=== PATIENT | male | born 1945 | race Asian ===

== ENCOUNTER 2025-04-25 00:45 | Inpatient (IN) | payer MEDICARE, OTHER ==
[~2025-04-25] VITALS: Ht 165.1 cm; Wt 70.0 kg
[2025-04-25] MEDS ORDERED: SODIUM CHLORIDE 0.9% 100 ML ONE (01:01)
[2025-04-25] MEDS ORDERED: IOHEXOL 350 MG/ML 100 ML VIAL ONE (01:01)
[2025-04-25 01:11] LABS: PLATELET COUNT (AUTO) 281 K/uL (150-450); RED BLOOD CELL COUNT(AUTO) 4.05 MIL/uL (4.50-5.90); RED CELL DISTRIBUTION WIDTH 13.8 % (11.5-14.5); WHITE BLOOD COUNT (AUTO) 9.5 K/uL (4.5-11.0)
[2025-04-25] MEDS: METOCLOPRAMIDE HCL 5 MG/ML 2 ML VIAL IVP ONE (01:20)
[2025-04-25 01:29] LABS: CALCIUM, TOTAL 9.2 mg/dL (8.8-10.5); CREATININE 1.25 mg/dL (0.60-1.30); GLOMERULAR FILTR. RATE CALC 56.0 mL/min (>60); GLUCOSE,RANDOM 173.0 mg/dL (70-110); SODIUM SERUM 137.0 mmol/L (136-145); UREA NITROGEN, BLOOD 14.0 mg/dL (7-18)
[2025-04-25 01:36] LABS: ASPARTATE AMINOTRANSFERASE 21.0 U/L (15-37); CHOL/HDL RATIO 2.7 (4.2-7.3); LDL CHOL (CALC.) 41.0 mg/dL (0-130); TOTAL PROTEIN, SERUM 7.7 g/dL (6.4-8.2); TROPONIN I-HIGH SENSITIVITY 12 ng/L (<76)
[2025-04-25] MEDS: SODIUM CHLORIDE 0.9% 1,000 ML IV ONE (01:46)
[2025-04-25] MEDS: CLOPIDOGREL BISULFATE 300 MG TABLET PO ONE (04:48)
[2025-04-25] MEDS: ASPIRIN 325 MG TABLET PO ONE (04:48)
[2025-04-25 05:20] LABS: TROPONIN I-HIGH SENSITIVITY 16 ng/L (<76)
[2025-04-25 05:29] LABS: APPEARANCE,URINE CLEAR (CLEAR); GLUCOSE, URINE (UA) >=1000 mg/dL (NEGATIVE); LEUKOCYTE ESTERASE ,URINE NEGATIVE (NEGATIVE); NITRATE,URINE NEGATIVE (NEGATIVE); OCCULT BLOOD,URINE NEGATIVE (NEGATIVE); PH,URINE DRUG SCREEN 6.5 (5.0-8.0); SPECIFIC GRAVITIY, URINE 1.032 (1.003-1.030)
[2025-04-25 05:36] LABS: ALCOHOL, URINE DRUG SCREEN NEGATIVE (NEGATIVE); AMPHET/METH SCREEN,URINE NEGATIVE (NEGATIVE); BARBITURATE SCREEN, URINE NEGATIVE (NEGATIVE); CANNABINOID SCREEN,URINE NEGATIVE (NEGATIVE); COCAINE SCREEN,URINE NEGATIVE (NEGATIVE); METHADONE SCREEN, URINE NEGATIVE (NEGATIVE)
[2025-04-25 05:48] LABS: SQUAMOUS EPITHELIAL CELL,UR Few /LPF (None Seen)
[2025-04-25] MEDS: ONDANSETRON HCL 4 MG/2 ML VIAL IVP PRN (07:05)
[2025-04-25] MEDS: HEPARIN SODIUM,PORCINE 5,000 UNITS/ML VIAL SQ SCH (08:00)
[2025-04-25] MEDS: POTASSIUM CHL 10 MEQ/WATER 50 ML IV PRN (08:03)
[2025-04-25] MEDS: DOCUSATE SODIUM 100 MG CAPSULE PO SCH (08:04)
[2025-04-25] MEDS: CLOPIDOGREL BISULFATE 75 MG TABLET PO SCH (08:04)
[2025-04-25] MEDS: ASPIRIN 81 MG CHEWABLE TABLET PO SCH (08:05)
[2025-04-25 11:19] LABS: TROPONIN I-HIGH SENSITIVITY 18 ng/L (<76)
[2025-04-25 14:28] VITALS: BP 152/67; PULSE 62; RESP 18; TEMP 97.7; O2SAT 98
[2025-04-25 19:54] VITALS: BP 163/79; PULSE 70; RESP 19; TEMP 98.1; O2SAT 100
[2025-04-25] MEDS: ATORVASTATIN CALCIUM 40 MG TABLET PO SCH (21:00)
[2025-04-25] MEDS: ACETAMINOPHEN 650 MG/ISO-OSM 65 ML IV PRN (21:34)
[2025-04-25 23:56] VITALS: BP 155/85; PULSE 69; RESP 16; TEMP 98.4; O2SAT 100
[2025-04-26 05:13] VITALS: BP 165/75; PULSE 69; RESP 18; TEMP 98.4; O2SAT 95
[2025-04-26] MEDS ORDERED: SODIUM CHLORIDE 0.9% 250 ML IV ONE ×2 (05:57→20:25)
[2025-04-26 06:36] LABS: PLATELET COUNT (AUTO) 255 K/uL (150-450); RED BLOOD CELL COUNT(AUTO) 4.17 MIL/uL (4.50-5.90); RED CELL DISTRIBUTION WIDTH 13.8 % (11.5-14.5); WHITE BLOOD COUNT (AUTO) 8.7 K/uL (4.5-11.0)
[2025-04-26 06:45] LABS: GLUCOMETER DEV NAME(LOC) 5S.1E; GLUCOSE,POINT OF CARE 124 MG/DL (70-110)
[2025-04-26 07:10] LABS: CALCIUM, TOTAL 9.2 mg/dL (8.8-10.5); CREATININE 1.28 mg/dL (0.60-1.30); GLOMERULAR FILTR. RATE CALC 54.0 mL/min (>60); GLUCOSE,RANDOM 115.0 mg/dL (70-110); SODIUM SERUM 141.0 mmol/L (136-145); UREA NITROGEN, BLOOD 15.0 mg/dL (7-18)
[2025-04-26 07:16] VITALS: BP 166/82; PULSE 69; RESP 18; TEMP 98.2; O2SAT 99
[2025-04-26 07:43] LABS: CHOL/HDL RATIO 2.5 (4.2-7.3); LDL CHOL (CALC.) 52.0 mg/dL (0-130)
[2025-04-26 09:01] LABS: GLUCOMETER DEV NAME(LOC) 5S.1E; GLUCOSE,POINT OF CARE 119 MG/DL (70-110)
[2025-04-26 11:02] VITALS: BP 170/78; PULSE 69; RESP 19; TEMP 97.8; O2SAT 98
[2025-04-26] MEDS: FUROSEMIDE 20 MG/2 ML VIAL IVP SCH (13:45)
[2025-04-26] MEDS: RINGERS SOLUTION,LACTATED 1,000 ML IV ONE (13:45)
[2025-04-26] MEDS ORDERED: 0.9% SODIUM CHLORIDE 10 ML SYRINGE IVP ONE (13:58)
[2025-04-26] MEDS ORDERED: IOHEXOL 350 MG/ML 100 ML VIAL ONE (13:58)
[2025-04-26] MEDS ORDERED: SODIUM CHLORIDE 0.9% 100 ML ONE (13:58)
[2025-04-26 14:35] LABS: GLUCOMETER DEV NAME(LOC) 5S.1E; GLUCOSE,POINT OF CARE 115 MG/DL (70-110)
[2025-04-26 15:35] VITALS: BP 163/78; PULSE 70; RESP 19; TEMP 98; O2SAT 100
[2025-04-26] MEDS: PIPERACILLIN/TAZO 3.375 GM/D5W 50 ML IV SCH (16:00)
[2025-04-26 20:00] VITALS: BP 153/59; PULSE 76; RESP 18; TEMP 98; O2SAT 96
[2025-04-26] MEDS: DEXAMETHASONE SOD PHOS 4 MG/ML VIAL IVP ONE (21:08)
[2025-04-27] VITALS (9 sets, daily range): BP systolic 116–139; BP diastolic 51–68; PULSE 69–77; RESP 18–22; TEMP 97.8–98.8; O2SAT 97–100
[2025-04-27 05:59] LABS: PLATELET COUNT (AUTO) 261 K/uL (150-450); RED BLOOD CELL COUNT(AUTO) 3.90 MIL/uL (4.50-5.90); RED CELL DISTRIBUTION WIDTH 13.7 % (11.5-14.5); WHITE BLOOD COUNT (AUTO) 15.4 K/uL (4.5-11.0)
[2025-04-27 06:08] LABS: CALCIUM, TOTAL 9.1 mg/dL (8.8-10.5); CREATININE 1.51 mg/dL (0.60-1.30); GLOMERULAR FILTR. RATE CALC 45.0 mL/min (>60); GLUCOSE,RANDOM 210.0 mg/dL (70-110); SODIUM SERUM 139.0 mmol/L (136-145); UREA NITROGEN, BLOOD 30.0 mg/dL (7-18)
[2025-04-27] MEDS ORDERED: 0.9% SODIUM CHLORIDE 10 ML SYRINGE IVP PRN (09:30)
[2025-04-27] MEDS: RINGERS SOLUTION,LACTATED 500 ML IV ONE (09:38)
[2025-04-27] MEDS: PIPERACILLIN SODIUM/TAZOBACTAM 2.25 GM in DEXTROSE 5%-WATER 50 ML IV SCH (09:38)
[2025-04-27 10:20] LABS: PLATELET COUNT (AUTO) 263 K/uL (150-450); RED BLOOD CELL COUNT(AUTO) 3.95 MIL/uL (4.50-5.90); RED CELL DISTRIBUTION WIDTH 13.6 % (11.5-14.5); WHITE BLOOD COUNT (AUTO) 14.9 K/uL (4.5-11.0)
[2025-04-27 10:26] LABS: SODIUM SERUM 140 mmol/L (136-145)
[2025-04-27 10:31] LABS: CALCIUM, TOTAL 8.9 mg/dL (8.8-10.5); CREATININE 1.60 mg/dL (0.60-1.30); GLOMERULAR FILTR. RATE CALC 42 mL/min (>60); GLUCOSE,RANDOM 190 mg/dL (70-110); UREA NITROGEN, BLOOD 32 mg/dL (7-18)
[2025-04-27 10:41] LABS: LACTIC ACID 1.4 mmol/L (0.4-2.0)
[2025-04-27 10:47] LABS: ASPARTATE AMINOTRANSFERASE 20 U/L (15-37); LACTATE DEHYDROGENASE 199 U/L (85-227); TOTAL PROTEIN, SERUM 7.7 g/dL (6.4-8.2)
[2025-04-27] MEDS ORDERED: DEXTROSE 50%-WATER 25 GM/50 ML SYRINGE IVP PRN (12:00)
[2025-04-27 12:30] LABS: GLUCOMETER DEV NAME(LOC) ICU.S7; GLUCOSE,POINT OF CARE 178 MG/DL (70-110)
[2025-04-27] MEDS: SODIUM BICARBONATE 100 MEQ in SODIUM CHLORIDE 0.45% 1,000 ML IV ONE (13:19)
[2025-04-27] MEDS: INSULIN LISPRO 100 UNITS/ML SQ PRN (13:21)
[2025-04-27] MEDS ORDERED: CALC-1271 PO (14:25)
[2025-04-27] MEDS ORDERED: METO-408 PO (14:25)
[2025-04-27] MEDS ORDERED: ATOR10TA69 PO (14:25)
[2025-04-27] MEDS ORDERED: [UNRECOGNIZED DRUG - CODE] SQ (14:25)
[2025-04-27] MEDS ORDERED: INSU100I94 SQ (14:25)
[2025-04-27] MEDS ORDERED: OMEP20CA12 PO (14:25)
[2025-04-27] MEDS ORDERED: EMPA25TA3 PO (14:25)
[2025-04-27] MEDS ORDERED: LINA5TAB PO (14:25)
[2025-04-27] MEDS ORDERED: NEMO30PE SQ (14:25)
[2025-04-27] MEDS ORDERED: INSU100I47 SQ (14:25)
[2025-04-27 17:46] LABS: CREATININE,URINE RANDOM 52.1 mg/dL (30.0-125.0)
[2025-04-27 17:48] LABS: UREA NITROGEN,URINE RANDOM 698 mg/dL (350-1000)
[2025-04-27 17:50] LABS: APPEARANCE,URINE CLEAR (CLEAR); GLUCOSE, URINE (UA) >=1000 mg/dL (NEGATIVE); LEUKOCYTE ESTERASE ,URINE NEGATIVE (NEGATIVE); NITRATE,URINE NEGATIVE (NEGATIVE); OCCULT BLOOD,URINE MODERATE (NEGATIVE); SPECIFIC GRAVITIY, URINE 1.022 (1.003-1.030)
[2025-04-27 18:47] LABS: SQUAMOUS EPITHELIAL CELL,UR Rare /LPF (None Seen)
[2025-04-27] MEDS: INSULIN GLARGINE,HUM.REC.ANLOG 100 UNITS/ML SQ SCH (20:22)
[2025-04-27 22:00] LABS: GLUCOMETER DEV NAME(LOC) 5S.1E; GLUCOSE,POINT OF CARE 169 MG/DL (70-110)
[2025-04-27 22:00] LABS: GLUCOMETER DEV NAME(LOC) 5S.1E; GLUCOSE,POINT OF CARE 196 MG/DL (70-110)
[2025-04-28] VITALS (11 sets, daily range): BP systolic 126–155; BP diastolic 52–79; PULSE 69–82; RESP 16–19; TEMP 97.9–98.6; O2SAT 96–100
[2025-04-28 06:31] LABS: GLUCOMETER DEV NAME(LOC) 5N.2C; GLUCOSE,POINT OF CARE 137 MG/DL (70-110)
[2025-04-28 06:50] LABS: PLATELET COUNT (AUTO) 231 K/uL (150-450); RED BLOOD CELL COUNT(AUTO) 3.77 MIL/uL (4.50-5.90); RED CELL DISTRIBUTION WIDTH 13.5 % (11.5-14.5); WHITE BLOOD COUNT (AUTO) 11.7 K/uL (4.5-11.0)
[2025-04-28 07:02] LABS: CALCIUM, TOTAL 8.5 mg/dL (8.8-10.5); CREATININE 1.32 mg/dL (0.60-1.30); GLOMERULAR FILTR. RATE CALC 52.0 mL/min (>60); GLUCOSE,RANDOM 142.0 mg/dL (70-110); SODIUM SERUM 138.0 mmol/L (136-145); UREA NITROGEN, BLOOD 28.0 mg/dL (7-18)
[2025-04-28] MEDS: ACETAMINOPHEN 325 MG TABLET PO PRN (08:40)
[2025-04-28 12:56] LABS: GLUCOMETER DEV NAME(LOC) 5S.1E; GLUCOSE,POINT OF CARE 198 MG/DL (70-110)
[2025-04-28] MEDS ORDERED: SODIUM CHLORIDE 0.9% 500 ML IV ONE (14:10)
[2025-04-28 17:25] LABS: GLUCOMETER DEV NAME(LOC) 5N.2C; GLUCOSE,POINT OF CARE 123 MG/DL (70-110)
[2025-04-28 21:26] LABS: GLUCOMETER DEV NAME(LOC) 5S.1E; GLUCOSE,POINT OF CARE 197 MG/DL (70-110)
[2025-04-29] VITALS (9 sets, daily range): BP systolic 128–158; BP diastolic 61–73; PULSE 68–80; RESP 17–18; TEMP 97.7–98.4; O2SAT 97–99
[2025-04-29 06:40] LABS: PLATELET COUNT (AUTO) 229 K/uL (150-450); RED BLOOD CELL COUNT(AUTO) 4.07 MIL/uL (4.50-5.90); RED CELL DISTRIBUTION WIDTH 13.6 % (11.5-14.5); WHITE BLOOD COUNT (AUTO) 8.5 K/uL (4.5-11.0)
[2025-04-29 06:42] LABS: CALCIUM, TOTAL 8.7 mg/dL (8.8-10.5); CREATININE 1.05 mg/dL (0.60-1.30); GLOMERULAR FILTR. RATE CALC > 60 mL/min (>60); GLUCOSE,RANDOM 140 mg/dL (70-110); SODIUM SERUM 138 mmol/L (136-145); UREA NITROGEN, BLOOD 21 mg/dL (7-18)
[2025-04-29] MEDS: LOSARTAN POTASSIUM 50 MG TABLET PO ONE (11:01)
[2025-04-29] MEDS: PIPERACILLIN/TAZO 3.375 GM/D5W 50 ML IV SCH (15:55)
[2025-04-30] VITALS (8 sets, daily range): BP systolic 113–160; BP diastolic 69–86; PULSE 69–87; RESP 16–18; TEMP 97.7–98.2; O2SAT 98–100
[2025-04-30 04:11] LABS: GLUCOMETER DEV NAME(LOC) 5S.1E; GLUCOSE,POINT OF CARE 142 MG/DL (70-110)
[2025-04-30 04:11] LABS: GLUCOMETER DEV NAME(LOC) 5S.1E; GLUCOSE,POINT OF CARE 134 MG/DL (70-110)
[2025-04-30 04:11] LABS: GLUCOMETER DEV NAME(LOC) 5N.2C; GLUCOSE,POINT OF CARE 143 MG/DL (70-110)
[2025-04-30 04:12] LABS: GLUCOMETER DEV NAME(LOC) 5S.1E; GLUCOSE,POINT OF CARE 137 MG/DL (70-110)
[2025-04-30 06:43] LABS: PLATELET COUNT (AUTO) 223 K/uL (150-450); RED BLOOD CELL COUNT(AUTO) 3.96 MIL/uL (4.50-5.90); RED CELL DISTRIBUTION WIDTH 13.5 % (11.5-14.5); WHITE BLOOD COUNT (AUTO) 7.3 K/uL (4.5-11.0)
[2025-04-30 06:59] LABS: CALCIUM, TOTAL 8.4 mg/dL (8.8-10.5); CREATININE 0.95 mg/dL (0.60-1.30); GLOMERULAR FILTR. RATE CALC > 60 mL/min (>60); GLUCOSE,RANDOM 113 mg/dL (70-110); SODIUM SERUM 138 mmol/L (136-145); UREA NITROGEN, BLOOD 17 mg/dL (7-18)
[2025-04-30] MEDS: LOSARTAN POTASSIUM 50 MG TABLET PO SCH (07:51)
[2025-04-30] MEDS: POTASSIUM CHLORIDE 20 MEQ ER TABLET PO PRN (09:41)
[2025-04-30] MEDS: LOSARTAN POTASSIUM 25 MG TABLET PO ONE (12:01)
[2025-04-30] MEDS: ACETAMINOPHEN 500 MG TABLET PO SCH (12:02)
[2025-04-30] MEDS: SPIRONOLACTONE 25 MG TABLET PO SCH (12:05)
[2025-04-30 12:31] LABS: GLUCOMETER DEV NAME(LOC) 5S.1E; GLUCOSE,POINT OF CARE 130 MG/DL (70-110)
[2025-05-01] MEDS ORDERED: LOSARTAN POTASSIUM 50 MG TABLET PO SCH (09:00)
== END 2025-04-30 14:35 | DRG 64 ==
LOC: EMS 00:46 → EDH 02:39 → 5S 13:25 → ICU 04-26 17:54 → 5S 04-27 17:30
PROVIDERS: ADMIT Internal Medicine; ATTEND Internal Medicine
DX: I63.531 Cerebral infarction due to unspecified occlusion or stenosis of right posterior cerebral artery (principal); I61.1 Nontraumatic intracerebral hemorrhage in hemisphere, cortical; N17.0 Acute kidney failure with tubular necrosis; J69.0 Pneumonitis due to inhalation of food and vomit; R65.11 Systemic inflammatory response syndrome (SIRS) of non-infectious origin with acute organ dysfunction; I13.0 Hypertensive heart and chronic kidney disease with heart failure and stage 1 through stage 4 chronic kidney disease, or unspecified chronic kidney disease; E87.20 Acidosis, unspecified; G81.94 Hemiplegia, unspecified affecting left nondominant side; I50.9 Heart failure, unspecified; R47.1 Dysarthria and anarthria; I48.91 Unspecified atrial fibrillation; I49.5 Sick sinus syndrome; E78.5 Hyperlipidemia, unspecified; R29.714 NIHSS score 14; R13.10 Dysphagia, unspecified; N18.31 Chronic kidney disease, stage 3a; E11.22 Type 2 diabetes mellitus with diabetic chronic kidney disease; Z79.4 Long term (current) use of insulin; Z95.0 Presence of cardiac pacemaker; Z79.899 Other long term (current) drug therapy; Z85.038 Personal history of other malignant neoplasm of large intestine
CPT/HCPCS: 70450; 70496; 70498; 71045; 74230; 76770; 80048; 80053; 80061; 80307; 81001; 82570; 82948; 82962; 83036; 83605; 83615; 83735; 84132; 84145; 84300; 84443; 84484; 84540; 85025; 85610; 85730; 86850; 86900; 86901; 87040; 87081; 92523; 92526; 92610; 92611; 93005; 93306; 97163; 97164; 97166; 97167; 97530; 97535; 99285; J0131; J0360; J1100; J1644; J1815; J1938; J2405; J2543; J3480; J3490; J7040; J7050; J7060; J7120; 36415-L1; 36415-TC

== ENCOUNTER 2025-04-30 11:12 | Inpatient (IN) | payer MEDICARE, OTHER ==
[~2025-04-30] VITALS: Ht 165.1 cm; Wt 69.2 kg
[~2025-04-30 11:12] MED LIST: ATOR10TA69 PO; CALC-1271 PO; EMPA25TA3 PO; INSU100I47 SQ; INSU100I94 SQ; LINA5TAB PO; METO-408 PO; NEMO30PE SQ; OMEP20CA12 PO; [UNRECOGNIZED DRUG - CODE] SQ
[2025-04-30 15:40] VITALS: BP 139/71; PULSE 69; RESP 18; TEMP 97.9; O2SAT 100
[2025-04-30 16:24] LABS: PLATELET COUNT (AUTO) 253 K/uL (150-450); RED BLOOD CELL COUNT(AUTO) 4.32 MIL/uL (4.50-5.90); RED CELL DISTRIBUTION WIDTH 13.4 % (11.5-14.5); WHITE BLOOD COUNT (AUTO) 8.1 K/uL (4.5-11.0)
[2025-04-30] MEDS ORDERED: ONDANSETRON 4 MG TABLET PO PRN (16:30)
[2025-04-30] MEDS ORDERED: DEXTROSE 50%-WATER 25 GM/50 ML SYRINGE IVP PRN (16:30)
[2025-04-30 16:36] LABS: ASPARTATE AMINOTRANSFERASE 17.0 U/L (15-37); CALCIUM, TOTAL 8.7 mg/dL (8.8-10.5); CREATININE 1.17 mg/dL (0.60-1.30); GLOMERULAR FILTR. RATE CALC 60.0 mL/min (>60); GLUCOSE,RANDOM 153.0 mg/dL (70-110); SODIUM SERUM 139.0 mmol/L (136-145); TOTAL PROTEIN, SERUM 7.4 g/dL (6.4-8.2); UREA NITROGEN, BLOOD 16.0 mg/dL (7-18)
[2025-04-30 17:05] LABS: APPEARANCE,URINE CLEAR (CLEAR); GLUCOSE, URINE (UA) >=1000 mg/dL (NEGATIVE); LEUKOCYTE ESTERASE ,URINE NEGATIVE (NEGATIVE); NITRATE,URINE NEGATIVE (NEGATIVE); OCCULT BLOOD,URINE MODERATE (NEGATIVE); SPECIFIC GRAVITIY, URINE 1.020 (1.003-1.030)
[2025-04-30 17:27] LABS: SQUAMOUS EPITHELIAL CELL,UR None Seen /LPF (None Seen)
[2025-04-30 17:30] LABS: GLUCOMETER DEV NAME(LOC) 2WR.2C; GLUCOSE,POINT OF CARE 132 MG/DL (70-110)
[2025-04-30 20:02] VITALS: BP 162/67; PULSE 69; RESP 18; TEMP 97.5; O2SAT 99
[2025-04-30] MEDS: INSULIN GLARGINE,HUM.REC.ANLOG 100 UNITS/ML SQ SCH (20:29)
[2025-04-30] MEDS: INSULIN LISPRO 100 UNITS/ML SQ PRN (20:31)
[2025-04-30] MEDS: ETHYL ALCOHOL 62% ANTISEPTIC NASAL SANITIZER 0.6 ML AMPUL NASAL SCH (20:31)
[2025-04-30] MEDS: DOCUSATE SODIUM 100 MG CAPSULE PO SCH (20:32)
[2025-04-30] MEDS: ATORVASTATIN CALCIUM 40 MG TABLET PO SCH (20:32)
[2025-04-30] MEDS: ACETAMINOPHEN 325 MG TABLET PO PRN (20:33)
[2025-04-30 23:36] LABS: GLUCOMETER DEV NAME(LOC) 2WR.2C; GLUCOSE,POINT OF CARE 175 MG/DL (70-110)
[2025-04-30 23:45] VITALS: O2SAT 99
[2025-05-01 04:50] VITALS: BP 137/67; PULSE 70; RESP 18; O2SAT 98
[2025-05-01 07:06] LABS: GLUCOMETER DEV NAME(LOC) 2WR.1D; GLUCOSE,POINT OF CARE 156 MG/DL (70-110)
[2025-05-01 08:00] VITALS: BP 138/72; PULSE 70; RESP 19; TEMP 98.1; O2SAT 99
[2025-05-01] MEDS: LOSARTAN POTASSIUM 50 MG TABLET PO SCH (08:18)
[2025-05-01 12:15] LABS: GLUCOMETER DEV NAME(LOC) 2WR.1D; GLUCOSE,POINT OF CARE 146 MG/DL (70-110)
[2025-05-01 17:01] LABS: GLUCOMETER DEV NAME(LOC) 2WR.2C; GLUCOSE,POINT OF CARE 176 MG/DL (70-110)
[2025-05-01 20:00] VITALS: BP 143/64; PULSE 69; RESP 18; TEMP 98.2; O2SAT 98
[2025-05-01] MEDS: AMOX TR/POT CLAV 875 MG/125 MG TABLET PO SCH (21:38)
[2025-05-01] MEDS: MELATONIN 5 MG TABLET PO PRN (21:48)
[2025-05-01] MEDS: COLD CREAM, SKIN EMOLLIENT 340 GM JAR TP SCH (21:54)
[2025-05-01] MEDS: TAMSULOSIN HCL 0.4 MG CAPSULE PO SCH (21:55)
[2025-05-01 22:24] LABS: APPEARANCE,URINE CLEAR (CLEAR); GLUCOSE, URINE (UA) >=1000 mg/dL (NEGATIVE); LEUKOCYTE ESTERASE ,URINE NEGATIVE (NEGATIVE); NITRATE,URINE NEGATIVE (NEGATIVE); OCCULT BLOOD,URINE MODERATE (NEGATIVE); SPECIFIC GRAVITIY, URINE 1.015 (1.003-1.030)
[2025-05-02 00:12] LABS: GLUCOMETER DEV NAME(LOC) 2WR.1D; GLUCOSE,POINT OF CARE 184 MG/DL (70-110)
[2025-05-02 06:55] LABS: GLUCOMETER DEV NAME(LOC) 2WR.1D; GLUCOSE,POINT OF CARE 137 MG/DL (70-110)
[2025-05-02 08:00] VITALS: BP 142/71; PULSE 70; RESP 18; TEMP 97.7; O2SAT 98
[2025-05-02 17:30] LABS: GLUCOMETER DEV NAME(LOC) 2WR.1D; GLUCOSE,POINT OF CARE 164 MG/DL (70-110)
[2025-05-02 20:00] VITALS: BP 147/71; PULSE 69; RESP 18; TEMP 98.2; O2SAT 100
[2025-05-02] MEDS ORDERED: TAMSULOSIN HCL 0.4 MG CAPSULE PO SCH (21:00)
[2025-05-02 21:21] LABS: GLUCOMETER DEV NAME(LOC) 2WR.1D; GLUCOSE,POINT OF CARE 164 MG/DL (70-110)
[2025-05-03 07:05] LABS: GLUCOMETER DEV NAME(LOC) 2WR.2C; GLUCOSE,POINT OF CARE 166 MG/DL (70-110)
[2025-05-03] MEDS: ASPIRIN 81 MG CHEWABLE TABLET PO SCH (07:59)
[2025-05-03 08:00] VITALS: BP 136/71; PULSE 69; RESP 19; TEMP 97.8; O2SAT 100
[2025-05-03] MEDS: CLOPIDOGREL BISULFATE 75 MG TABLET PO SCH (08:00)
[2025-05-03 13:11] LABS: GLUCOMETER DEV NAME(LOC) 2WR.1D; GLUCOSE,POINT OF CARE 159 MG/DL (70-110)
[2025-05-03 17:21] LABS: GLUCOMETER DEV NAME(LOC) 2WR.1D; GLUCOSE,POINT OF CARE 158 MG/DL (70-110)
[2025-05-03 20:15] VITALS: BP 141/66; PULSE 69; RESP 19; TEMP 98.1; O2SAT 100
[2025-05-03] MEDS: INSULIN GLARGINE,HUM.REC.ANLOG 100 UNITS/ML SQ SCH (20:22)
[2025-05-03 20:46] LABS: GLUCOMETER DEV NAME(LOC) 2WR.2C; GLUCOSE,POINT OF CARE 194 MG/DL (70-110)
[2025-05-04 07:43] VITALS: BP 115/58; PULSE 72; RESP 19; TEMP 97.5; O2SAT 98
[2025-05-04 08:02] LABS: PLATELET COUNT (AUTO) 245 K/uL (150-450); RED BLOOD CELL COUNT(AUTO) 4.41 MIL/uL (4.50-5.90); RED CELL DISTRIBUTION WIDTH 13.4 % (11.5-14.5); WHITE BLOOD COUNT (AUTO) 7.0 K/uL (4.5-11.0)
[2025-05-04 08:06] LABS: CALCIUM, TOTAL 9.4 mg/dL (8.8-10.5); CREATININE 1.08 mg/dL (0.60-1.30); GLOMERULAR FILTR. RATE CALC > 60 mL/min (>60); GLUCOSE,RANDOM 148 mg/dL (70-110); SODIUM SERUM 137 mmol/L (136-145); UREA NITROGEN, BLOOD 13 mg/dL (7-18)
[2025-05-04 08:06] LABS: GLUCOMETER DEV NAME(LOC) 2WR.2C; GLUCOSE,POINT OF CARE 133 MG/DL (70-110)
[2025-05-04] MEDS: POTASSIUM CHLORIDE 20 MEQ ER TABLET PO ONE (11:50)
[2025-05-04 12:46] LABS: GLUCOMETER DEV NAME(LOC) 2WR.1D; GLUCOSE,POINT OF CARE 157 MG/DL (70-110)
[2025-05-04 17:51] LABS: GLUCOMETER DEV NAME(LOC) 2WR.1D; GLUCOSE,POINT OF CARE 138 MG/DL (70-110)
[2025-05-04 20:40] VITALS: BP 144/64; PULSE 71; RESP 19; TEMP 98.1; O2SAT 100
[2025-05-04 21:05] LABS: GLUCOMETER DEV NAME(LOC) 2WR.2C; GLUCOSE,POINT OF CARE 173 MG/DL (70-110)
[2025-05-05 06:45] LABS: CALCIUM, TOTAL 8.7 mg/dL (8.8-10.5); CREATININE 0.72 mg/dL (0.60-1.30); GLOMERULAR FILTR. RATE CALC > 60 mL/min (>60); GLUCOSE,RANDOM 128 mg/dL (70-110); SODIUM SERUM 137 mmol/L (136-145); UREA NITROGEN, BLOOD 12 mg/dL (7-18)
[2025-05-05 07:11] LABS: GLUCOMETER DEV NAME(LOC) 2WR.2C; GLUCOSE,POINT OF CARE 128 MG/DL (70-110)
[2025-05-05 08:00] VITALS: BP 133/69; PULSE 70; RESP 18; TEMP 98.2; O2SAT 99
[2025-05-05 10:02] VITALS: BP 130/72; RESP 18; O2SAT 100
[2025-05-05 12:11] LABS: GLUCOMETER DEV NAME(LOC) 2WR.1D; GLUCOSE,POINT OF CARE 169 MG/DL (70-110)
[2025-05-05 18:06] LABS: GLUCOMETER DEV NAME(LOC) 2WR.2C; GLUCOSE,POINT OF CARE 125 MG/DL (70-110)
[2025-05-05 20:00] VITALS: BP 143/73; PULSE 69; RESP 18; TEMP 98.1; O2SAT 99
[2025-05-05 22:01] LABS: GLUCOMETER DEV NAME(LOC) 2WR.2C; GLUCOSE,POINT OF CARE 204 MG/DL (70-110)
[2025-05-06 07:01] LABS: GLUCOMETER DEV NAME(LOC) 2WR.1D; GLUCOSE,POINT OF CARE 135 MG/DL (70-110)
[2025-05-06 08:00] VITALS: BP 132/67; PULSE 69; RESP 18; TEMP 97.5; O2SAT 99
[2025-05-06] MEDS: INFLUENZA VIRUS VACCINE TVS (6MO+) 2025-26/PF 45 MCG/0.5 ML SYRINGE IM. ONE (12:37)
[2025-05-06 13:01] LABS: GLUCOMETER DEV NAME(LOC) 2WR.1D; GLUCOSE,POINT OF CARE 165 MG/DL (70-110)
[2025-05-06] MEDS: PEG 400/HYPROMELLOSE/GLYCERIN 15 ML OPHTHALMIC SOLUTION OU SCH (13:12)
[2025-05-06 19:11] LABS: GLUCOMETER DEV NAME(LOC) 2WR.1D; GLUCOSE,POINT OF CARE 136 MG/DL (70-110)
[2025-05-06 19:40] VITALS: BP 137/63; PULSE 69; RESP 18; TEMP 98.1; O2SAT 99
[2025-05-06 21:40] LABS: GLUCOMETER DEV NAME(LOC) 2WR.1D; GLUCOSE,POINT OF CARE 228 MG/DL (70-110)
[2025-05-07 07:40] LABS: GLUCOMETER DEV NAME(LOC) 2WR.2C; GLUCOSE,POINT OF CARE 140 MG/DL (70-110)
[2025-05-07 08:00] VITALS: BP 127/66; PULSE 70; RESP 18; TEMP 98; O2SAT 97
[2025-05-07] MEDS: EMPAGLIFLOZIN 10 MG TABLET PO SCH (10:13)
[2025-05-07 12:57] LABS: GLUCOMETER DEV NAME(LOC) 2WR.2C; GLUCOSE,POINT OF CARE 146 MG/DL (70-110)
== END 2025-05-07 16:10 | DRG 56 ==
LOC: 2WR 15:38
PROVIDERS: ADMIT Physical Medicine & Rehabilitation; ATTEND Physical Medicine & Rehabilitation
DX: I69.354 Hemiplegia and hemiparesis following cerebral infarction affecting left non-dominant side (principal); J69.0 Pneumonitis due to inhalation of food and vomit; N17.0 Acute kidney failure with tubular necrosis; I13.0 Hypertensive heart and chronic kidney disease with heart failure and stage 1 through stage 4 chronic kidney disease, or unspecified chronic kidney disease; R41.4 Neurologic neglect syndrome; R53.1 Weakness; I49.5 Sick sinus syndrome; I50.9 Heart failure, unspecified; N18.9 Chronic kidney disease, unspecified; E11.22 Type 2 diabetes mellitus with diabetic chronic kidney disease; E78.5 Hyperlipidemia, unspecified; E87.6 Hypokalemia; I48.0 Paroxysmal atrial fibrillation; R13.12 Dysphagia, oropharyngeal phase; R29.714 NIHSS score 14; I66.21 Occlusion and stenosis of right posterior cerebral artery; R41.3 Other amnesia; R47.1 Dysarthria and anarthria; Z74.09 Other reduced mobility; E11.40 Type 2 diabetes mellitus with diabetic neuropathy, unspecified; E11.319 Type 2 diabetes mellitus with unspecified diabetic retinopathy without macular edema; I25.10 Atherosclerotic heart disease of native coronary artery without angina pectoris; I34.0 Nonrheumatic mitral (valve) insufficiency; R51.9 Headache, unspecified; Z83.3 Family history of diabetes mellitus; Z87.01 Personal history of pneumonia (recurrent); Z85.038 Personal history of other malignant neoplasm of large intestine; Z95.0 Presence of cardiac pacemaker; Z79.4 Long term (current) use of insulin
CPT/HCPCS: 80048; 80053; 81001; 82962; 85025; 87081; 92507; 92523; 92526; 93970; 97110; 97112; 97116; 97150; 97163; 97167; 97530; 97535; 99366; J1815